=== PATIENT | female | born 1990 | race Hispanic/Latino ===

== ENCOUNTER → 2017-04-11 | Outpatient (CLI) | payer OTHER ==
--- NOTE | 2017-04-11 18:51 | Diagnostic Imaging Report ---
PROCEDURE:US RETROPERITONEAL ( KIDNEY ). COMPARISON:None. INDICATIONS:RT. FLANK PAIN TECHNIQUE: Head-scale and color sonographic images of the bilateral kidneys and bladder where obtained in transverse and longitudinal planes. FINDINGS: RIGHT KIDNEY: 10.8 cm, cortex 1.2 cm Cysts: None Solid masses: None Stones: None Hydronephrosis: None Echogenicity: Normal LEFT KIDNEY: 10.2 cm, cortex 2.0 cm Cysts: None Solid masses: None. Stones: None Hydronephrosis: None. There is an approximately 3.0 x 2.3 x 2.2 cm hypoechoic structure in the medial inferior aspect. No internal vascularity. Echogenicity: Normal Bladder: No focal lesions. Bilateral ureteral jets identified. CONCLUSION: 1. No stones or evidence of obstruction. 2. Indeterminate 3.0 hypoechoic structure in the medial inferior aspect of the left kidney. This may represent an extrarenal pelvis or exophytic complex cyst. A renal mass is also a possibility. Recommend CT abdomen with renal mass protocol for further evaluation. Jluis Engel M.D. Dictated by: Jluis Engel M.D. on 04/11/2017 at 18:50 Electronically approved by: Jluis Engel M.D. on 04/11/2017 at 18:50
== END ==
LOC: US 16:42
PROVIDERS: ATTEND Internal Medicine
DX: R10.9 Unspecified abdominal pain (principal)
CPT/HCPCS: 76770

== ENCOUNTER → 2017-05-04 | Outpatient (CLI) | payer OTHER ==
[~2017-05-04] MED LIST: IOPAMIDOL 370 MG/ML 200 ML INFUS..BTL INJ ONE; SODIUM CHLORIDE 0.9% 50ML 50 ML ONE
--- NOTE | 2017-05-04 15:51 | Diagnostic Imaging Report ---
PROCEDURE: CT ABDOMEN \T\ PELVIS W/WO CONTRAST TECHNIQUE: The abdomen and pelvis were scanned utilizing a multidetector helical scanner from the diaphragm to the lesser trochanter before and after the IV administration of 100 cc of Isovue 370 and the oral administration of water. Coronal and sagittal multiplanar reformations were obtained. COMPARISON: Patients [facility], US, US RETROPERITONEAL ( KIDNEY )., 04/11/2017, 17:01. INDICATIONS: RENAL MASS on ultrasound FINDINGS: LOWER THORAX: Lung bases are clear. HEPATOBILIARY: No focal hepatic lesions. No biliary ductal dilatation. Gallbladder is unremarkable. SPLEEN: No splenomegaly. PANCREAS: No focal masses or ductal dilatation. ADRENALS: No adrenal nodules. KIDNEYS/URETERS: Symmetrical renal enhancement. No hydronephrosis, stones, or cystic or solid mass lesions. Specifically, no focal abnormality is noted in the inferomedial aspect of the left kidney, which would correspond to the previously described abnormality on ultrasound. There is good contrast opacification of bilateral renal collecting systems, renal pelves, and ureters. No filling defects, strictures, or extrinsic compressions. PELVIC ORGANS/BLADDER: Bladder is unremarkable, without focal lesions. Uterus is unremarkable. No adnexal masses. PERITONEUM / RETROPERITONEUM: Small amount of free fluid in the pelvic cul-de-sac. The, likely physiological. No ascites or pneumoperitoneum. LYMPH NODES: No lymphadenopathy. VESSELS: Celiac trunk, superior and inferior mesenteric, and bilateral renal arteries are patent. Portal, superior mesenteric, and splenic veins are patent. Incidental note is made of a left circumaortic renal vein. GI TRACT: No bowel dilation or evidence of obstruction. Appendix identified and normal in caliber. BONES AND SOFT TISSUES: No aggressive lytic lesion. Soft tissues are unremarkable. IMPRESSION: 1. Normal bilateral renal examination. Specifically, no focal abnormality is seen in the inferomedial left kidney which would correspond to the previously described abnormality on ultrasound, and therefore, this is likely artifactual. 2. Essentially unremarkable CT abdomen and pelvis. Jluis Engel M.D. Dictated by: Jluis Engel M.D. on 05/04/2017 at 15:51 Electronically approved by: Jluis Engel M.D. on 05/04/2017 at 15:51
== END ==
LOC: CT 13:12
PROVIDERS: ATTEND Internal Medicine
DX: R10.9 Unspecified abdominal pain (principal)
CPT/HCPCS: 74178; 81025; Q9967